=== PATIENT | male | born 1990 | race Caucasian/White ===

== ENCOUNTER 2024-01-17 08:21 | Emergency (ER) | payer OTHER ==
[~2024-01-17] VITALS: Ht 175.2 cm; Wt 68.0 kg
[2024-01-17] MEDS ORDERED: Diltiazem Hydrochloride 25 MG/5 ML VIAL IV ONE (08:35)
[2024-01-17 08:45] LABS: BASO % 0.3 % (0.0-1.0); EOS % 0.7 % (1.0-4.0); HEMATOCRIT 44.8 % (42.0-52.0); LYMPH # 1.8 10*3/uL (1.3-4.4); LYMPH % 31.9 % (27.0-41.0); MEAN CELL VOLUME 90.3 fl (80.0-94.0); MEAN CORPUSCULAR HGB 30.4 pg (27.0-31.0); MEAN CORPUSCULAR HGB CONC 33.7 g/dl (33.0-37.0); MEAN PLATELET VOLUME 8.7 fl (9.6-12.3); MONO # 0.4 10*3/uL (0.1-1.0); MONO % 7.3 % (3.0-9.0); NEUT # 3.4 10*3/uL (2.3-7.9); NEUT % 59.5 % (47.0-73.0); PLATELET COUNT AUTOMATED 156 10*3/uL (130-400); RED BLOOD COUNT 4.96 10*6/uL (4.50-5.90); RED CELL DISTRI WIDTH 11.9 % (0-14.5); WHITE BLOOD COUNT 5.8 10*3/uL (4.8-10.8)
[2024-01-17 08:56] LABS: ACT PARTIAL THROMBO TIME 26.4 SECONDS (20.0-32.1)
[2024-01-17 09:07] LABS: BUN 10 mg/dl (9-23); CHLORIDE 106 mmol/L (98-107); POTASSIUM 3.9 mmol/L (3.4-5.1)
[2024-01-17] MEDS ORDERED: CLONAZEPAM0.5 M2 PO (09:48)
[2024-01-17] MEDS ORDERED: ATENOLOL25 MG PO (09:49)
== END 2024-01-17 11:13 | disposition home or self-care (01) ==
LOC: ED 08:21
PROVIDERS: Internal Medicine
DX: I48.20 Chronic atrial fibrillation, unspecified (principal)